=== PATIENT | female | born 1970 | race Caucasian/White ===

== ENCOUNTER 2018-03-27 00:18 | Emergency (ER) | payer MEDICARE, OTHER ==
[2018-03-27 01:22] LABS: Acetaminophen Less than 6.0 mcg/mL (10.0-30.0); Alcohol 99 mg/dL (Less than 10)
[2018-03-27] MEDS ORDERED: Ibuprofen 200 MG TAB ONE ×2 (03:49→03:50)
[2018-03-27 08:32] LABS: Acetaminophen Less than 6.0 mcg/mL (10.0-30.0)
[2018-03-27] MEDS ORDERED: levETIRAcetam 500 MG TAB PO SCH (09:00)
[2018-03-27] MEDS ORDERED: busPIRone HCl 5 MG TAB PO SCH (09:00)
[2018-03-27] MEDS ORDERED: Ketorolac Tromethamine 30 MG/ML VIAL ONE (17:55)
[2018-03-27] MEDS ORDERED: Diazepam 5 MG TAB ONE (20:43)
[2018-03-27] MEDS ORDERED: Topiramate 100 MG TAB PO SCH (21:00)
[2018-03-27] MEDS ORDERED: Diazepam 5 MG TAB PO SCH (21:00)
[2018-03-27] MEDS ORDERED: STRATTERA 100 MG PO SCH (21:00)
[2018-03-28] MEDS ORDERED: busPIRone HCl 5 MG TAB PO SCH (09:00)
== END 2018-03-27 15:28 | disposition home or self-care (01) ==
LOC: ERS 00:18
DX: T39.1X1A Poisoning by 4-Aminophenol derivatives, accidental (unintentional), initial encounter (principal); T40.2X1A Poisoning by other opioids, accidental (unintentional), initial encounter; F32.9 Major depressive disorder, single episode, unspecified; Z79.899 Other long term (current) drug therapy
CPT/HCPCS: 36415; 36416; 80177; 80307; 96372; 99285; J1885

== ENCOUNTER 2018-06-03 09:25 | Outpatient (CLI) | payer MEDICARE ==
--- NOTE | 2018-06-03 11:33 | BD ---
DEXA SCAN: INDICATIONS: Osteoporosis screening. COMPARISON: None. FINDINGS: LUMBAR SPINE BMD (g/cm2) T-SCORE Z-SCORE L1 0.831 -1.4 -1.0 L2 0.869 -1.4 -0.9 L3 0.895 -1.7 -1.2 L4 0.797 -2.4 -1.9 L1-L4 0.847 -1.8 -1.3 LEFT FEMORAL NECK 0.639 -1.9 -1.4 LEFT TOTAL HIP 0.839 -0.8 -0.5 IMPRESSION: Based on WHO criteria, the patient's bone mineral density is considered osteopenic. The patient is a t moderate risk for fracture. POS: RONAL
--- NOTE | 2018-06-08 13:23 | MMO ---
Bilateral MAMMO Bilat Screen [facility]. CLINICAL HISTORY: Patient is 48 years old and is seen for screening. The patient has the following family history of breast cancer: mother, at age 60 and sister, at age 39. The patient has a history of Skin cancer at age 34. The patient has a history of bilateral Breast reduction at age 33. VIEWS: The views performed were: bilateral craniocaudal with tomosynthesis and bilateral mediolateral oblique with tomosynthesis. MAMMOGRAM FINDINGS: There are scattered fibroglandular densities. There are benign appearing calcifications seen in both breasts. There are no suspicious masses, calcifications or areas of architectural distortion. IMPRESSION: THERE IS NO MAMMOGRAPHIC EVIDENCE OF MALIGNANCY. A ROUTINE FOLLOW-UP MAMMOGRAM IN 1 YEAR IS RECOMMENDED. THE RESULTS OF THIS EXAM WERE SENT TO THE PATIENT. ACR BI-RADS Category 2 - Benign finding MAMMOGRAPHY NOTE: 1. A negative mammogram report should not delay a biopsy if a dominant of clinically suspicious mass is present. 2. Approximately 10% to 15% of breast cancers are not detected by mammography. 3. Adenosis and dense breasts may obscure an underlying neoplasm.
== END 2018-06-03 09:26 | disposition home or self-care (01) ==
LOC: BICMAMMO 09:25
PROVIDERS: ATTEND Obstetrics & Gynecology
DX: Z12.31 Encounter for screening mammogram for malignant neoplasm of breast (principal); M85.89 Other specified disorders of bone density and structure, multiple sites; Z80.3 Family history of malignant neoplasm of breast; Z85.828 Personal history of other malignant neoplasm of skin; Z98.890 Other specified postprocedural states
CPT/HCPCS: 77063; 77067; 77080

== ENCOUNTER 2018-06-30 13:43 | Outpatient (CLI) | payer MEDICARE ==
--- NOTE | 2018-06-30 14:55 | ULT ---
THYROID ULTRASOUND: Comparison: None. History: Thyroid nodules. Technique: Multiplanar grayscale and color doppler images were obtained in a thyroid ultrasound. FINDINGS: There is a cyst in the upper pole of the right thyroid lobe. There is a solid nodule in the right thy roid lobe which is slightly hypoechoic measuring 1.0 cm in greatest dimension. This does not contain suspicious calcifications and is wider than tall and well circumscribed. There is a solid nodule in t he left thyroid lobe which is also hypoechoic, wider than tall, and well circumscribed without suspic ious calcifications. This left thyroid nodule measures 0.6 cm in greatest dimension. The thyroid lobes measure 4.7 and 3.0 cm in length on the right and left, respectively. IMPRESSION: Multinodular thyroid. The largest nodule is seen in the right thyroid lobe and is a BIRADS category 4 lesion. Given its small size, a follow up exam is recommended at one years, two years, three years a nd five years. POS: CAITLIN
== END 2018-06-30 13:44 | disposition home or self-care (01) ==
LOC: BICULT 13:43
PROVIDERS: ATTEND Specialist
DX: E04.2 Nontoxic multinodular goiter (principal)
CPT/HCPCS: 76536